=== PATIENT | male | born 1990 | race Two or more races ===

== ENCOUNTER 2019-11-20 21:17 | Emergency (ER) | payer MEDICAID ==
--- NOTE | 2019-11-21 03:06 | EDM.PDOC ---
ED HPI GENERAL MEDICAL PROBLEM - General Chief Complaint: Chest Pain Stated Complaint: CHEST PAIN Time Seen by Provider: 11/20/19 21:45 Source of Information: Reports: Patient History Limitations: Reports: No Limitations - History of Present Illness INITIAL COMMENTS - FREE TEXT/NARRATIVE: Pt. presents to ER with anxiety and chest discomfort after consuming 5 energy drinks and several cups of coffee. Pt. states that he "is trying to stay awake so he gets a full night sleep". He states that he feels agitated. Denies any suicidal/homicidal ideation. Pt. complains of nausea and GI upset. Denies any fever or chills. No vomiting or diarrhea. Onset: Today Onset Date: 11/21/19 Location: Reports: Generalized - Related Data Allergies Allergy/AdvReac Type Severity Reaction Status Date / Time aripiprazole [From Abilify] Allergy Hyperactivi Verified 11/20/19 21:28 ty codeine Allergy Hyperactivi Verified 11/20/19 21:28 ty methylphenidate HCl Allergy Hyperactivi Verified 11/20/19 21:28 [From Ritalin] ty Home Meds: Home Meds cloNIDine [Catapres] 2 tab PO DAILY 11/20/19 [History] Past Medical History Cardiovascular History: Reports: Arrhythmia Musculoskeletal History: Reports: Fracture Other Musculoskeletal History: 4 ribs about 4-5 years ago Neurological History: Reports: Migraines Psychiatric History: Reports: ADHD, Anxiety, Depression, Other (See Below) Other Psychiatric History: previous cutting behaviors Social & Family History - Tobacco Use Smoking Status *Q: Current Every Day Smoker Years of Tobacco use: 7 Packs/Tins Daily: 0.3 - Recreational Drug Use Recreational Drug Type: Reports: Marijuana/Hashish Recreational Drug Use Frequency: Daily ED ROS GENERAL - Review of Systems Review Of Systems: See Below Constitutional: Reports: No Symptoms HEENT: Reports: No Symptoms Respiratory: Reports: No Symptoms Cardiovascular: Reports: Chest Pain Endocrine: Reports: No Symptoms GI/Abdominal: Reports: No Symptoms : Reports: No Symptoms Musculoskeletal: Reports: No Symptoms Skin: Reports: No Symptoms Neurological: Reports: Tingling, Tremors Psychiatric: Reports: Anxiety. Denies: Confusion, Depression, Hallucinations, Homicidal Ideation, Suicidal Ideation ED EXAM, GENERAL - Physical Exam Exam: See Below Exam Limited By: No Limitations General Appearance: Alert, WD/WN, No Apparent Distress Eye Exam: Bilateral Eye: EOMI, Normal Fundi, Normal Inspection, PERRL Neck: Normal Inspection, Supple, Non-Tender, Full Range of Motion Respiratory/Chest: No Respiratory Distress, Lungs Clear, Normal Breath Sounds, No Accessory Muscle Use, Chest Non-Tender Cardiovascular: Normal Peripheral Pulses, Regular Rate, Rhythm, No Edema, No Gallop, No JVD, No Murmur, No Rub GI/Abdominal: Normal Bowel Sounds, Soft, Non-Tender, No Organomegaly, No Distention, No Mass Extremities: Normal Inspection, Normal Range of Motion, Non-Tender, No Pedal Edema, Normal Capillary Refill Neurological: Alert, Oriented, CN II-XII Intact, Normal Cognition, Normal Gait, No Motor/Sensory Deficits Psychiatric: Normal Affect, Normal Mood Skin Exam: Warm, Dry, Intact, Normal Color EKG INTERPRETATION Rhythm: NSR [place]: Normal P-Wave: Present QRS: Normal ST-T: Normal QT: Normal Course - Vital Signs Last Recorded V/S: Last Vital Signs Temp 36.5 C 11/20/19 21:30 Pulse 126 H 11/20/19 21:30 Resp 20 11/20/19 21:30 BP 128/92 H 11/20/19 21:30 Pulse Ox 98 11/20/19 21:30 - Orders/Labs/Meds Orders: Active Orders 24 hr Category Date Time Status EKG 12 Lead [EKG Documentation Completion] [RC] STAT Care 11/20/19 21:25 Active Departure - Departure Time of Disposition: 03:08 Disposition: Home, Self-Care 01 Clinical Impression: Caffeine abuse - Discharge Information Referrals: PCP,None [Primary Care Provider] - Forms: ED Department Discharge Additional Instructions: It is not advisable to consume more than one energy drink per day. It will take some time for the caffeine to get out of your system. Drink plenty of water. Recheck in clinic if not improving. Sepsis Event Note - Evaluation Sepsis Screening Result: No Definite Risk - Focused Exam Vital Signs: Vital Signs Temp Pulse Resp BP Pulse Ox 11/20/19 21:30 36.5 C 126 H 20 128/92 H 98 Date Exam was Performed: 11/21/19 Time Exam was Performed: 03:01 - My Orders Last 24 Hours: My Active Orders 11/20/19 21:25 EKG 12 Lead [EKG Documentation Completion] [RC] STAT - Assessment/Plan Last 24 Hours: My Active Orders 11/20/19 21:25 EKG 12 Lead [EKG Documentation Completion] [RC] STAT
== END 2019-11-20 21:55 | disposition home or self-care (01) ==
LOC: VM.ED 21:17
DX: F15.10 Other stimulant abuse, uncomplicated (principal); F17.210 Nicotine dependence, cigarettes, uncomplicated; Z88.5 Allergy status to narcotic agent; Z88.8 Allergy status to other drugs, medicaments and biological substances
CPT/HCPCS: 93005; 99284-25

== ENCOUNTER 2024-10-19 11:07 | Emergency (ER) | payer MEDICAID | END 2024-10-19 13:09 | disposition swing bed (61) | LOC: SUPCPDRO 11:07 → VM.ED 11:07 | DX: M25.511 Pain in right shoulder (principal); Z88.0 Allergy status to penicillin; Z88.8 Allergy status to other drugs, medicaments and biological substances; Z88.5 Allergy status to narcotic agent; Z79.899 Other long term (current) drug therapy | CPT/HCPCS: 73030-RT; 99284 ==